=== PATIENT | male | born 1945 | race Caucasian/White ===

== ENCOUNTER 2018-06-19 18:30 | Inpatient (IN) | payer MEDICARE, BC ==
[2018-06-19 19:45] LABS: ADD MAN DIFF? NO
[2018-06-19] MEDS: SOD CHLORIDE 0.9% 500 ML IV (19:48)
[2018-06-19 19:49] LABS: WHITE BLOOD COUNT 10.7 10^3/ul (4.8-10.8)
[2018-06-19 19:49] LABS: ABNORMAL IP MESSAGE 1; BASOPHILS % 0.1 % (0.0-2.0); HEMATOCRIT 40.2 % (42.0-52.0); HEMOGLOBIN 13.2 g/dl (14.0-18.0); LYMPHOCYTES # 0.4 10^3/ul (0.8-2.9); LYMPHOCYTES % 3.4 % (15.0-51.0); MEAN CORPUSCULAR HEMOGLOBIN 29.6 pg (29.0-33.0); MEAN CORPUSCULAR HGB CONC 32.8 g/dl (32.0-37.0); MEAN CORPUSCULAR VOLUME 90.1 fl (82.0-101.0); MEAN PLATELET VOLUME 9.1 fl (7.4-10.4); MONOCYTE # 0.3 10^3/ul (0.3-0.9); MONOCYTES % 2.3 % (0.0-11.0); NEUTROPHIL # 10.1 10^3/ul (1.6-7.5); NEUTROPHILS % 93.8 % (39.0-77.0); PLATELET COUNT 193 10^3/UL (140-415); POSITIVE DIFF @See below; RED BLOOD COUNT 4.46 10^6/ul (4.70-6.10)
[2018-06-19 20:07] LABS: INR 1.11; PROTIME 14.5 Sec (11.9-14.9); PT RATIO 1.1
[2018-06-19 20:08] LABS: PARTIAL THROMBOPLASTIN TIME 30.7 Sec (23.0-35.0)
[2018-06-19 20:31] LABS: ALANINE AMINOTRANSFERASE 21 IU/L (13-69); ALBUMIN/GLOBULIN RATIO 1.21; ALKALINE PHOSPHATASE 80 IU/L (42-121); ANION GAP 11 (5-13); ASPARTATE AMINO TRANSFERASE 33 IU/L (15-46); BILIRUBIN,INDIRECT 0.4 mg/dl (0-1.1); BILIRUBIN,TOTAL 0.4 mg/dl (0.2-1.3); BLOOD UREA NITROGEN 30 mg/dl (7-20); CALCIUM 9.8 mg/dl (8.4-10.2); CARBON DIOXIDE 27 mmol/L (21-31); CHLORIDE 102 mmol/L (97-110); CREATININE 1.43 mg/dl (0.61-1.24); GLUCOSE 121 mg/dl (70-220); LIPASE 99 U/L (23-300); SODIUM 140 mmol/L (135-144); TOTAL PROTEIN 7.3 g/dl (6.1-8.1)
[2018-06-19 20:35] LABS: POTASSIUM 4.3 mmol/L (3.5-5.1)
[2018-06-19 20:41] LABS: TROPONIN-I < 0.012 ng/ml (0.000-0.120)
[2018-06-19] MEDS ORDERED: DEXTROSE 5%-0.45% NACL 500 ML IV (21:30)
[2018-06-19] MEDS ORDERED: PROPOFOL 40 ML (22:28)
[2018-06-19] MEDS ORDERED: LIDOCAINE 2% (SDV) 5 ML INJ (22:28)
[2018-06-19] MEDS ORDERED: SUCCINYLCHOLINE CHLORIDE 100 MG/5 ML SYG IV (22:28)
[2018-06-19] MEDS: KETOROLAC 30 MG INJ IV (23:58)
[2018-06-19] MEDS: ONDANSETRON 4 MG INJ IV (23:58)
[2018-06-20] MEDS ORDERED: OXYCODONE/ACETAMINOPHEN (5/325) TAB PO ×2
[2018-06-20] MEDS ORDERED: METOCLOPRAMIDE 10 MG INJ IV
[2018-06-20] MEDS ORDERED: FENTAnyl 50 MCG/ML VIAL IV ×3
[2018-06-20] MEDS ORDERED: HYDROmorphONE 1 MG/5 ML IV SYRINGE IV ×2
[2018-06-20] MEDS ORDERED: EPHEDrine SULFATE 50 MG/5 ML SYG IV
[2018-06-20] MEDS ORDERED: MEPERIDINE 25 MG INJ IV
[2018-06-20] MEDS ORDERED: LABETALOL HCL 20MG INJ IV
[2018-06-20] MEDS ORDERED: ALBUTEROL 0.083% (NEB) 2.5 MG/3 ML AMP HHN
[2018-06-20] MEDS ORDERED: MIDAZOLAM 1 MG/ML 2 ML INJ IV
[2018-06-20] MEDS ORDERED: DIPHENHYDRAMINE 50 MG INJ IV
[2018-06-20] MEDS: HYDROmorphONE 1 MG/5 ML IV SYRINGE IV (00:23)
[2018-06-20] MEDS ORDERED: morphine 10 MG INJ IV (00:30)
[2018-06-20] MEDS: hydrALAzine 20 MG INJ IV (00:36)
[2018-06-20] MEDS: DEXTROSE 5%-0.45% NACL 1,000 ML IV ×3 (01:44→20:57)
[2018-06-20 05:25] LABS: ADD MAN DIFF? NO
[2018-06-20 05:32] LABS: WHITE BLOOD COUNT 8.8 10^3/ul (4.8-10.8)
[2018-06-20 05:33] LABS: BASOPHILS % 0.2 % (0.0-2.0); EOSINOPHILS % 0.1 % (0.0-7.0); HEMATOCRIT 37.2 % (42.0-52.0); HEMOGLOBIN 12.1 g/dl (14.0-18.0); LYMPHOCYTES % 11.7 % (15.0-51.0); MEAN CORPUSCULAR HEMOGLOBIN 29.4 pg (29.0-33.0); MEAN CORPUSCULAR HGB CONC 32.5 g/dl (32.0-37.0); MEAN CORPUSCULAR VOLUME 90.3 fl (82.0-101.0); MEAN PLATELET VOLUME 9.8 fl (7.4-10.4); MONOCYTE # 0.9 10^3/ul (0.3-0.9); MONOCYTES % 10.6 % (0.0-11.0); NEUTROPHIL # 6.8 10^3/ul (1.6-7.5); NEUTROPHILS % 77.1 % (39.0-77.0); PLATELET COUNT 195 10^3/UL (140-415); RED BLOOD COUNT 4.12 10^6/ul (4.70-6.10); RED CELL DISTRIBUTION WIDTH 12.9 % (11.5-14.5)
[2018-06-20 05:42] LABS: INR 1.19; PROTIME 15.3 Sec (11.9-14.9); PT RATIO 1.2
[2018-06-20 05:43] LABS: PARTIAL THROMBOPLASTIN TIME 32.8 Sec (23.0-35.0)
[2018-06-20 05:57] LABS: ANION GAP 11 (5-13); BLOOD UREA NITROGEN 28 mg/dl (7-20); CALCIUM 8.9 mg/dl (8.4-10.2); CARBON DIOXIDE 24 mmol/L (21-31); CHLORIDE 103 mmol/L (97-110); CREATININE 1.31 mg/dl (0.61-1.24); GLUCOSE 120 mg/dl (70-220); POTASSIUM 4.1 mmol/L (3.5-5.1); SODIUM 138 mmol/L (135-144)
[2018-06-20 06:22] LABS: ADD UMIC YES; UR ASCORBIC ACID NEGATIVE (NEGATIVE); UR BILIRUBIN (Dip) NEGATIVE (NEGATIVE); UR BLOOD (Dip) 1+ mg/dL (NEGATIVE); UR BUDDING YEAST FEW /HPF (NONE SEEN); UR CLARITY SLIGHTLY CLOUDY (CLEAR); UR COLOR YELLOW (YELLOW); UR GLUCOSE (Dip) NEGATIVE (NEGATIVE); UR KETONES (Dip) NEGATIVE (NEGATIVE); UR LEUKOCYTE ESTERASE (Dip) 3+ Leu/ul (NEGATIVE); UR NITRITE (Dip) POSITIVE (NEGATIVE); UR RBC 1 /HPF (0-5); UR SPECIFIC GRAVITY (Dip) 1.013 (1.003-1.030); UR TOTAL PROTEIN (Dip) NEGATIVE (NEGATIVE); UR UROBILINOGEN (Dip) NEGATIVE (NEGATIVE); UR WBC 179 /HPF (0-5)
[2018-06-20] MEDS: METOPROLOL 25 MG TAB PO ×2 (09:40→20:51)
[2018-06-20] MEDS ORDERED: METOPROLOL 25 MG TAB PO (10:00)
[2018-06-20] MEDS: SOD CHLORIDE 0.9% 500 ML IV (10:30)
[2018-06-20] MEDS: DILTIAZEM (CD) 120 MG CAP PO (13:36)
[2018-06-20] MEDS: CALCIUM ACETATE 667 MG CAP PO ×2 (13:36→17:48)
[2018-06-20] MEDS: TAMSULOSIN (SR) 0.4 MG CAP PO (20:49)
[2018-06-20] MEDS: HEPARIN 5,000 UNIT/1 ML VIAL SC (20:53)
[2018-06-20] MEDS: HYDROCODONE/APAP (5/325) TAB PO (22:58)
[2018-06-21 05:30] LABS: ADD MAN DIFF? NO
[2018-06-21 05:39] LABS: WHITE BLOOD COUNT 6.4 10^3/ul (4.8-10.8)
[2018-06-21 05:39] LABS: BASOPHILS % 0.5 % (0.0-2.0); EOSINOPHILS # 0.1 10^3/ul (0.0-0.5); EOSINOPHILS % 1.6 % (0.0-7.0); HEMATOCRIT 34.2 % (42.0-52.0); HEMOGLOBIN 11.1 g/dl (14.0-18.0); LYMPHOCYTES # 1.2 10^3/ul (0.8-2.9); LYMPHOCYTES % 18.7 % (15.0-51.0); MEAN CORPUSCULAR HEMOGLOBIN 29.8 pg (29.0-33.0); MEAN CORPUSCULAR HGB CONC 32.5 g/dl (32.0-37.0); MEAN CORPUSCULAR VOLUME 91.7 fl (82.0-101.0); MEAN PLATELET VOLUME 9.8 fl (7.4-10.4); MONOCYTE # 0.8 10^3/ul (0.3-0.9); MONOCYTES % 12.5 % (0.0-11.0); NEUTROPHIL # 4.3 10^3/ul (1.6-7.5); NEUTROPHILS % 66.5 % (39.0-77.0); PLATELET COUNT 181 10^3/UL (140-415); RED BLOOD COUNT 3.73 10^6/ul (4.70-6.10); RED CELL DISTRIBUTION WIDTH 13.4 % (11.5-14.5)
[2018-06-21 06:10] LABS: ANION GAP 6 (5-13); BLOOD UREA NITROGEN 27 mg/dl (7-20); CALCIUM 8.4 mg/dl (8.4-10.2); CARBON DIOXIDE 27 mmol/L (21-31); CHLORIDE 105 mmol/L (97-110); CHOL/HDL RATIO 2.9 RATIO; CHOLESTEROL 109 mg/dl (100-200); CREATININE 1.43 mg/dl (0.61-1.24); GLUCOSE 107 mg/dl (70-220); HDL CHOLESTEROL 37 mg/dl (31-75); LDL CHOLESTEROL,CALCULATED 59 mg/dl; MAGNESIUM 1.9 mg/dl (1.7-2.5); POTASSIUM 3.9 mmol/L (3.5-5.1); SODIUM 138 mmol/L (135-144); TRIGLYCERIDES 64 mg/dl (0-149)
[2018-06-21 06:16] LABS: HEMOGLOBIN A1C 5.3 % (0-5.9)
[2018-06-21] MEDS: DILTIAZEM (CD) 120 MG CAP PO (08:29)
[2018-06-21] MEDS: METOPROLOL 25 MG TAB PO (08:30)
[2018-06-21] MEDS: LACTOBACILLUS RHAMNOSUS CAP PO (08:30)
[2018-06-21] MEDS: CALCIUM ACETATE 667 MG CAP PO ×2 (08:32→11:47)
[2018-06-21] MEDS: HEPARIN 5,000 UNIT/1 ML VIAL SC (08:35)
[2018-06-21] MEDS ORDERED: DILTIAZEM (CD) 120 MG CAP PO (09:00)
[2018-06-21] MEDS: HYDROCODONE/APAP (5/325) TAB PO (11:47)
[2018-06-21] MEDS ORDERED: SOD CHLORIDE 0.9% 500 ML IV (14:30)
== END 2018-06-21 14:01 | disposition short-term general hospital (02) | DRG 563 ==
LOC: MS1 06-20 01:30 → E/R 18:30 → REC 20:22
PROC: 0PSDXZZ Reposition Left Humeral Head, External Approach (ICD-10-PCS; principal; 2018-06-19 22:00)
DX: S42.292A Other displaced fracture of upper end of left humerus, initial encounter for closed fracture (principal); N17.9 Acute kidney failure, unspecified; I48.0 Paroxysmal atrial fibrillation; S42.252A Displaced fracture of greater tuberosity of left humerus, initial encounter for closed fracture; I10 Essential (primary) hypertension; N40.0 Benign prostatic hyperplasia without lower urinary tract symptoms; W11.XXXA Fall on and from ladder, initial encounter; Y93.89 Activity, other specified; Y92.89 Other specified places as the place of occurrence of the external cause; Y99.8 Other external cause status; Z79.01 Long term (current) use of anticoagulants
CPT/HCPCS: 36415; 71045; 73030; 73221; 76775; 80048; 80053; 80061; 81001; 83036; 83690; 83735; 84484; 85025; 85610; 85730; 93005; 93306; 96360; 99285-25